=== PATIENT | female | born 1985 | race Two or more races ===

== ENCOUNTER 2016-07-17 13:25 | Observation (INO) | payer MEDICAID ==
[~2016-07-17] VITALS: Ht 154.9 cm; Wt 96.2 kg
[2016-07-17] MEDS ORDERED: PREN-96 PO (13:44)
[2016-07-17] MEDS ORDERED: LACTATED RINGER'S 1,000 ML IV ONE (14:08)
[2016-07-17] MEDS ORDERED: ceFAZolin 1GM 2 GM in D5W 5% 100 ML IV ONE (14:15)
[2016-07-17] MEDS ORDERED: ceFAZolin 1GM/50ML D5W 100 ML IV ONE (14:25)
[2016-07-17] MEDS ORDERED: ACETAMINOPHEN 325 MG TAB PO ONE (14:30)
[2016-07-17 17:08] LABS: Urine Bilirubin Negative (Negative); Urine Color Yellow (Yellow); Urine Glucose Normal (Normal); Urine RBC 18 /hpf (0 - 4); Urine Squamous Epithelial Cell FEW /hpf (<5); Urine Urobilinogen Normal (Negative); Urine WBC Clumps PRESENT /hpf (None Seen)
[2016-07-17 17:10] LABS: Urine Blood 2+ /uL (Negative); Urine Ketone 1+ (Negative); Urine Nitrite POSITIVE (Negative)
== END 2016-07-17 16:30 | disposition home or self-care (01) | DRG 566 ==
LOC: LDRP 13:25
PROVIDERS: ADMIT Obstetrics & Gynecology; ATTEND Obstetrics & Gynecology
DX: O23.43 Unspecified infection of urinary tract in pregnancy, third trimester (principal); Z3A.30 30 weeks gestation of pregnancy
CPT/HCPCS: 59025; 76805; 81001; 81002; 96365; G0378; J0690; J7060

== ENCOUNTER 2016-09-23 17:35 | Observation (INO) | payer MEDICAID ==
[~2016-09-23 17:35] MED LIST: PREN-96 PO
== END 2016-09-23 19:30 | disposition home or self-care (01) | DRG 566 ==
LOC: LDRP 17:35
PROVIDERS: ADMIT Specialist; ATTEND Specialist
DX: O26.893 Other specified pregnancy related conditions, third trimester (principal); Z3A.39 39 weeks gestation of pregnancy
CPT/HCPCS: 59025; 76815; 81002; G0378

== ENCOUNTER 2016-09-25 08:00 | Observation (INO) | payer MEDICAID | END 2016-09-25 09:35 | disposition home or self-care (01) | DRG 566 | LOC: LDRP 08:00 | PROVIDERS: ADMIT Obstetrics & Gynecology; ATTEND Obstetrics & Gynecology | DX: O26.893 Other specified pregnancy related conditions, third trimester (principal); Z3A.39 39 weeks gestation of pregnancy | CPT/HCPCS: 59025; 76818; 81002; G0378 ==